=== PATIENT | female | born 1985 | race African-American/Black ===

== ENCOUNTER 2016-11-18 19:38 | Emergency (ER) | payer MEDICAID, OTHER ==
[~2016-11-18] VITALS: Ht 160 cm; Wt 66.0 kg
[~2016-11-18 19:38] MED LIST: TRAZ50TA4 PO
[2016-11-18 19:39] VITALS: BP 170/84; PULSE 85; RESP 16; TEMP 98.5; O2SAT 98
[2016-11-18] MEDS ORDERED: MEDR4PAK PO (21:30)
--- NOTE | 2016-11-18 21:39 | PD ---
HPI Chief Complaint: Abdominal Pain Time Seen by Provider: 21:39 Travel History International Travel<30 days: No Contact w/Intl Traveler<30days: No Traveled to known affect area: No History of Present Illness HPI 31-year-old female that presents to the ED for evaluation of possible bump to her vagina. Per patient she's had this since today. Per patient today she fell "weird down there". Per patient she was feeling the area to make sure she didn't have anything and she did notice that she had a lump on the vagina. Per patient she was concerned. Patient came here mainly because of this. She denies any other complaint. No chest pain or shortness of breath. No abdominal pain. No vaginal discharge. She denies any STD exposure stating that she had not had sex for over a year. Denies any back pain. No chest pain. No fevers chills or sweats. No urinary symptoms. No bowel movement issues. Per patient she doesn't have any pain but just palpated the area. No allergies to medications. 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) Psychiatric: No Reproductive: No Respiratory: No Migraines: Yes Ulcer: Yes ?: Not LMP: 11/09/16 : 4 Para: 4 Past Surgical History Surgical History: No Previous Surgery Other Surgery: No Social History Alcohol Use: Yes (rare) Tobacco Use: Yes (1/2 PPD) Substance Use: No Allergies-Medications (Allergen,Severity, Reaction): Coded Allergies: No Known Allergies (Verified , 11/18/16) Reported Meds & Prescriptions Reported Meds & Active Scripts Active Medrol Dosepak (Methylprednisolone) 4 Mg Dspk 4 Mg PO DIRECTED Per Pharmacist direction Review of Systems General / Constitutional: No: Fever, Chills, Weight Gain, Weight Loss, Other Eyes: No: Diploplia, Blurred Vision, Photophobia, Drainage, Redness, Foreign Body Sensation, Pain, Tearing, Blind Spots, Visual changes, Blindness, Other HENT: No: Headaches, Vertigo, Lightheadedness, Sore Throat, Rhinitis, Rhinorrhea, Congestion, Nosebleed, Neck Stiffness, Neck Pain, Masses, Gingival Bleeding, Dental Difficulties, Ear Discharge, Earache, Other Cardiovascular: No: Chest Pain or Discomfort, Palpitations, Irregular Rhythm, Tachycardia, Diaphoresis, Syncope, Dyspnea on exertion, Varicosities, Edema, Cyanosis, Varicosities, Phlebitis, Claudication, Other Respiratory: No: Cough, Shortness of Breath, Wheezing, Sneezing, Orthopnea, Hemoptysis, Stridor, Night Sweats, Pleuritic Pain, Other Gastrointestinal: No: Nausea, Vomiting, Diarrhea, Abdominal Pain, Hematemesis, Hematochezia, Constipation, Changes in Bowel Habits, Indigestion, Dysphagia, Loss of Appetite, Other Genitourinary: Positive: Other (vaginal lump), No: Urgency, Frequency, Dysuria , Nocturia, Hematuria, Decreased Urinary Output, Oliguria, Hesitancy, Dribbling , Incontinence, Pelvic Pain, Flank Pain, Dyspareunia, Discharge, Dysmenorrhea, Menorrhagia, Metorrhagia, Vaginal Bleeding Musculoskeletal: No: Myalgias, Arthralgias, Limited ROM, Weakness, Cramping, Edema, Pain, Atrophy, Other Skin: Positive Lumps, No Rash, No Itching, No Dryness, No Hives, No Change in Pigmentation, No Change in nails, No Alopecia, No Lesions, No Breast Lumps, No Breast Tenderness, No Breast Swelling, No Other Neurologic: No: Weakness, Dizziness, Syncope, Focal Abnormalities, Coordination Problem, Tremor, Ataxia, Headache, Change in Mentation, Slurred Speech, Paresthesia, Incontinence, Seizures, Sensory Disturbance, Other Psychiatric: No: Anxiety, Depression, Suicidal Ideations, Disorder of Thought, Mood Disorder, Substance Abuse, Homicidal Ideation, Other Endocrine: No: Heat Intolerance, Cold Intolerance, Polyuria, Polydipsia, Other Hematologic/Lymphatic: No: Easy Bruising, Lymph Node Enlargement, Other Physical Exam Narrative GENERAL: SKIN: Warm and dry. HEAD: Atraumatic. Normocephalic. EYES: Pupils equal and round. No scleral icterus. No injection or drainage. ENT: No nasal bleeding or discharge. Mucous membranes pink and moist. NECK: Trachea midline. No JVD. CARDIOVASCULAR: Regular rate and rhythm. RESPIRATORY: No accessory muscle use. Clear to auscultation. Breath sounds equal bilaterally. GASTROINTESTINAL: Abdomen soft, non-tender, nondistended. Hepatic and splenic margins not palpable. Vaginal exam: The one finger nurse present. Patient has no obvious deformity to the vagina itself. Patient does have some skin folds and possible small lumps to the upper aspect of the wall but there appeared to be nontender. No sign of obvious infection. Vaginal exam did reveal some whitish discharge with erythema on the cervix but no other deformity. No cervical tenderness. No lymphadenopathy noted. No cysts. MUSCULOSKELETAL: Extremities without clubbing, cyanosis, or edema. No obvious deformities. NEUROLOGICAL: Awake and alert. No obvious cranial nerve deficits. Motor grossly within normal limits. Five out of 5 muscle strength in the arms and legs. Normal speech. PSYCHIATRIC: Appropriate mood and affect; insight and judgment normal. Data Data Last Documented VS Vital Signs Date Time Temp Pulse Resp B/P Pulse Ox O2 Delivery O2 Flow Rate FiO2 11/18/16 19:39 98.5 85 16 170/84 98 Orders Gc And Chlamydia Pcr (11/18/16 21:33) Wet Prep Profile (11/18/16 21:33) Ua Includes Microscopic (11/18/16 21:33) Labs Laboratory Tests Test 11/18/16 21:40 Urine Color LIGHT-YELLOW Urine Turbidity CLEAR Urine pH 6.5 Urine Specific [place] 1.009 Urine Protein NEG mg/dL Urine Glucose (UA) NEG mg/dL Urine Ketones NEG mg/dL Urine Occult Blood NEG Urine Nitrite NEG Urine Bilirubin NEG Urine Urobilinogen LESS THAN 2.0 MG/DL Urine Leukocyte Esterase MOD Urine WBC 6 /hpf Urine Squamous Epithelial 3 /hpf Cells Microscopic Urinalysis Comment Clue Cells (Wet Prep) NONE SEEN Vaginal Trichomonas (Wet Prep) NONE SEEN Vaginal Yeast (Wet Prep) NONE SEEN MDM Medical Decision Making Medical Screen Exam Complete: Yes Emergency Medical Condition: Yes Medical Record Reviewed: Yes Interpretation(s) wet prep negative UA shows WBcs and leukerase esterase Differential Diagnosis Vaginal mass versus abscess versus vaginal discharge versus vaginitis Narrative Course 31-year-old female that presents to the ED for evaluation of possible vaginal lump. Patient was properly examined and was found to have signs and symptoms consistent with appears to be a vaginal lump. Patient also has some vaginal discharge. Questionable yeast infection versus fracture vaginosis. No sign of acute infection otherwise. Wet prep showed negative for acute disease. At this time I do not believe this is an STD. Patient does complains of a small lump. I believe that this is likely normal anatomy. Regardless I do recommend close follow-up with an HOG STOMACH PREPARER or her PCP for follow-up if this continues to be an issue. Patient did have some looker sisters as well as white blood cells on her urine. I will give patient a prescription for Keflex to cover for possible UTI. Follow with PCP. See ED worsening symptoms. Diagnosis Primary Impression: Lump in vagina Additional Impression: UTI (urinary tract infection) Qualified Code: N30.00 - Acute cystitis without hematuria Patient Instructions: General Instructions Additional Instructions: Take meds as prescribed. F/u with PCP or PREPARED FOODS ASSOCIATE See ED if worst. Med/Other Pt SpecificInfo: Prescription(s) given Scripts Cephalexin (Keflex)500 Mg [id number] Mg PO BID 10 Days Prov:Donte Ortiz MD 11/18/16 Methylprednisolone Dosepak (Medrol Dosepak)4 Mg Dspk4 Mg PO DIRECTED #1 DSPK Ref 0 Per Pharmacist direction Prov:Donte Ortiz MD 11/18/16 Disposition: 01 DISCHARGE HOME Condition: Stable Bob Waters Nov 18, 2016 21:39
[2016-11-18 22:33] LABS: BLOOD, URINE NEG (NEG); GLUCOSE,URINE NEG (NEG); KETONE, URINE NEG (NEG); NITRITE,URINE NEG (NEG); PH, URINE 6.5 (5.0-8.5); SQUAMOUS EPITHELIAL CELL URINE 3 /hpf (0-5); URINE COLOR LIGHT-YELLOW (YELLW/STRAW)
[2016-11-18] MEDS ORDERED: CEPH-460 PO (22:37)
[2016-11-19 01:14] LABS: CHLAMYDIA PCR NOT DETECTED (NOT DETECT); NEISSERIA PCR NOT DETECTED (NOT DETECT)
== END 2016-11-18 23:01 | disposition home or self-care (01) ==
LOC: NEPE 19:38
DX: N39.0 Urinary tract infection, site not specified (principal); R22.9 Localized swelling, mass and lump, unspecified; B96.89 Other specified bacterial agents as the cause of diseases classified elsewhere
CPT/HCPCS: 81001; 87210; 87491; 87591; 99283

== ENCOUNTER 2017-01-15 22:27 | Emergency (ER) | payer MEDICAID, OTHER ==
[~2017-01-15 22:27] MED LIST changes: +CEPH-460 PO; +MEDR4PAK PO; -TRAZ50TA4 PO
[2017-01-15 22:29] VITALS: BP 186/79; PULSE 81; RESP 16; TEMP 98.7; O2SAT 100
[2017-01-16 00:15] VITALS: BP 142/73; PULSE 78; RESP 16; TEMP 98.6
[2017-01-16] MEDS ORDERED: SODIUM CHLOR 0.9% 1000 ML INJ 1,000 ML IV ONE (00:56)
--- NOTE | 2017-01-16 01:10 | PD ---
HPI Chief Complaint: Bleeding Time Seen by Provider: 00:53 Travel History International Travel<30 days: No Contact w/Intl Traveler<30days: No Traveled to known affect area: No History of Present Illness HPI The patient is a 31 year old female who presents to the [facility] emergency department with a history of irregular vaginal bleeding that she reports began a month ago. She reports that it is associated with cramping. 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 The patient reports that she cannot stay any longer for evaluation. [facility] Past Medical History Narrative Medical The patient has a history of headaches, history of gallstones, history of dyspepsia. Cancer: No Cardiovascular Problems: No Diminished Hearing: No Endocrine: No Gastrointestinal Disorders: Yes (GALLSTONES; Chronic GI pain ??ulcer) Genitourinary: No Hypertension: Yes (R/T ) Immune Disorder: No Implanted Vascular Access Dvce: No Musculoskeletal: No Neurologic: Yes ("fluid on spine that causes headaches" per patient) Psychiatric: No Reproductive: No Respiratory: No Migraines: Yes Ulcer: Yes Tetanus Vaccination: < 5 Years Influenza Vaccination: No ?: Not LMP: 01/15/ Menopausal: Yes : 4 Para: 4 Past Surgical History Narrative Surgical The patient denies any past surgical history. Surgical History: No Previous Surgery Other Surgery: No Social History Alcohol Use: No Tobacco Use: Yes Substance Use: No Allergies-Medications (Allergen,Severity, Reaction): Coded Allergies: No Known Allergies (Verified , 01/15/17) Reported Meds & Prescriptions Reported Meds & Active Scripts Active Keflex (Cephalexin) 500 Mg Cap 500 Mg PO BID 10 Days Medrol Dosepak (Methylprednisolone) 4 Mg Dspk 4 Mg PO DIRECTED Per Pharmacist direction Review of Systems Except as stated in HPI: all other systems reviewed are Neg General / Constitutional: No: Fever Eyes: No: Visual changes HENT: No: Headaches Cardiovascular: No: Chest Pain or Discomfort Respiratory: No: Shortness of Breath Gastrointestinal: Positive: Abdominal Pain, No: Nausea, Vomiting, Diarrhea, Changes in Bowel Habits, Indigestion, Loss of Appetite Genitourinary: Positive: Pelvic Pain (cramping), Vaginal Bleeding, No: Dysuria , Discharge Musculoskeletal: No: Pain Skin: No Rash Neurologic: No: Weakness, Change in Mentation, Slurred Speech, Sensory Disturbance Psychiatric: No: Depression Endocrine: No: Polydipsia Hematologic/Lymphatic: No: Easy Bruising Physical Exam Exam Limitations: Left AMA Narrative Examination of this patient was not able to be completed and the patient elected to leave AGAINST MEDICAL ADVICE. Data Data Last Documented VS Vital Signs Date Time Temp Pulse Resp B/P Pulse Ox O2 Delivery O2 Flow Rate FiO2 01/16/17 00:15 98.6 78 16 142/73 Room Air 01/16/17 00:15 100 Orders Complete Blood Count With Diff (01/16/17 00:56) Comprehensive Metabolic Panel (01/16/17 00:56) Gc And Chlamydia Pcr (01/16/17 00:56) Wet Prep Profile (01/16/17 00:56) Urinalysis - C+S If Indicated (01/16/17 00:56) Iv Access Insert/Monitor (01/16/17 00:56) Sodium Chlor 0.9% 1000 Ml Inj (Ns 1000 M (01/16/17 00:56) Ed Urine Pregnancytest Poc (01/16/17 00:56) Thyroid Stimulating Hormone (01/16/17 00:56) MDM Medical Decision Making Medical Screen Exam Complete: Yes Emergency Medical Condition: Yes Medical Record Reviewed: Yes Differential Diagnosis Symptomatic anemia from dysfunctional uterine bleeding, versus endocrine disorder causing dysfunctional uterine bleeding, versus Narrative Course During the course of the patients emergency department visit, the patients history, examination, and differential diagnosis were reviewed with the patient. The patient had a bedside test that was reportedly negative. 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 The patient is aware that her workup is not completed. The patient reports that she will come back later. AMA: The risks of leaving against medical advice without further evaluation treatment were discussed with the patient. These risks include cardiac dysfunction, cardiac dysrhythmia, possible heart attack, possible stroke or . The patient indicated understanding of these risks and appeared to have the capacity to make this decision. Diagnosis Primary Impression: Vaginal bleeding Disposition: AGAINST MEDICAL ADVICE Condition: Stable Carmen Bai MD January 16, 2017 01:10
== END 2017-01-16 01:20 | disposition left against medical advice (07) ==
LOC: NEPE 22:27
DX: N93.9 Abnormal uterine and vaginal bleeding, unspecified (principal); I10 Essential (primary) hypertension; Z72.0 Tobacco use; Z87.19 Personal history of other diseases of the digestive system; Z86.69 Personal history of other diseases of the nervous system and sense organs; Z53.29 Procedure and treatment not carried out because of patient's decision for other reasons
CPT/HCPCS: 84703; 99283

== ENCOUNTER 2017-03-24 14:59 | Emergency (ER) | payer MEDICAID ==
[~2017-03-24] VITALS: Ht 157.5 cm; Wt 60.0 kg
[2017-03-24 15:01] VITALS: BP 161/101; PULSE 116; RESP 14; TEMP 99.4; O2SAT 98
[2017-03-24] MEDS ORDERED: SODIUM CHLOR 0.9% 1000 ML INJ 1,000 ML IV SCH (17:12)
--- NOTE | 2017-03-24 17:13 | PD ---
HPI Chief Complaint: Abdominal Pain Time Seen by Provider: 17:08 Travel History International Travel<30 days: No Contact w/Intl Traveler<30days: No Traveled to known affect area: No History of Present Illness HPI Patient is a 32-year-old female presents with epigastric abdominal pain radiating to her back and down her left lower extremity. Patient states he going on for the past 36-48 hours, she states initially had some mild nausea which is resolved with the pain then became into her back and down her left lower extremity. She describes the pain as electric shock sensation. She states when she lies on her right side feels much better. States this to the pain is never happened to her before. Denies any vaginal bleeding vaginal discharge vomiting diarrhea constipation. When asked if the pain is more in her belly and or her back states more in her belly. Patient states that she has a history of chronic headaches as been taking a fair amount of Excedrin but not in excess of label instructions. PFSH Past Medical History Cancer: No Cardiovascular Problems: No Diminished Hearing: No Endocrine: No Gastrointestinal Disorders: Yes (GALLSTONES; Chronic GI pain ??ulcer) Genitourinary: No Hypertension: Yes (R/T ) Immune Disorder: No Implanted Vascular Access Dvce: No Musculoskeletal: No Neurologic: Yes ("fluid on spine that causes headaches" per patient) Psychiatric: No Reproductive: No Respiratory: No Migraines: Yes Ulcer: Yes ?: Not LMP: 02/07/17 Menopausal: Yes : 4 Para: 4 Past Surgical History Other Surgery: No Social History Alcohol Use: No Tobacco Use: Yes Substance Use: No Allergies-Medications (Allergen,Severity, Reaction): Coded Allergies: No Known Allergies (Verified , 03/24/17) Reported Meds & Prescriptions Reported Meds & Active Scripts Active Ibuprofen 600 Mg Tab 600 Mg PO Q8H PRN Flexeril (Cyclobenzaprine HCl) 10 Mg Tab 10 Mg PO TID Prednisone 20 Mg Tab 60 Mg PO DAILY 5 Days Keflex (Cephalexin) 500 Mg Cap 500 Mg PO Q6H 3 Days Keflex (Cephalexin) 500 Mg Cap 500 Mg PO BID 10 Days Medrol Dosepak (Methylprednisolone) 4 Mg Dspk 4 Mg PO DIRECTED Per Pharmacist direction Review of Systems Except as stated in HPI: all other systems reviewed are Neg Physical Exam Narrative GENERAL: Well-developed well-nourished, appears in mild discomfort. SKIN: Focused skin assessment warm/dry. HEAD: Atraumatic. Normocephalic. EYES: Pupils equal and round. No scleral icterus. No injection or drainage. ENT: No nasal bleeding or discharge. Mucous membranes pink and moist. NECK: Trachea midline. No JVD. CARDIOVASCULAR: Regular rate and rhythm. No murmur appreciated. RESPIRATORY: No accessory muscle use. Clear to auscultation. Breath sounds equal bilaterally. GASTROINTESTINAL: Abdomen soft, non-tender, nondistended. Hepatic and splenic margins not palpable. No CVA tenderness. Her abdomen is quite benign. MUSCULOSKELETAL: No obvious deformities. No clubbing. No cyanosis. No edema. Patient does have some low lumbar tenderness to the left of midline. She states palpation at this point causes her painful sensation. NEUROLOGICAL: Awake and alert. No obvious cranial nerve deficits. Motor grossly within normal limits. Normal speech. 5 out of 5 strength in bilateral lower extremity's, DTRs 2+ bilaterally equal. PSYCHIATRIC: Appropriate mood and affect; insight and judgment normal. Data Data Last Documented VS Vital Signs Date Time Temp Pulse Resp B/P Pulse Ox O2 Delivery O2 Flow Rate FiO2 03/24/17 17:32 18 100 Room Air 03/24/17 15:01 99.4 116 161/101 Orders Complete Blood Count With Diff (03/24/17 17:12) Comprehensive Metabolic Panel (03/24/17 17:12) Lipase (03/24/17 17:12) Urinalysis - C+S If Indicated (03/24/17 17:12) Iv Access Insert/Monitor (03/24/17 17:12) Ecg Monitoring (03/24/17 17:12) Oximetry (03/24/17 17:12) Pantoprazole Inj (Protonix Inj) (03/24/17 17:15) Sodium Chlor 0.9% 1000 Ml Inj (Ns 1000 M (03/24/17 17:12) Sodium Chloride 0.9% Flush (Ns Flush) (03/24/17 17:15) Ketorolac Inj (Toradol Inj) (03/24/17 17:15) Ed Urine Pregnancytest Poc (03/24/17 17:12) Urine Culture (03/24/17 17:25) Labs Laboratory Tests Test 03/24/17 17:25 White Blood Count 8.1 TH/MM3 Red Blood Count 4.72 MIL/MM3 Hemoglobin 14.7 GM/DL Hematocrit 42.6 % Mean Corpuscular Volume 90.4 FL Mean Corpuscular Hemoglobin 31.1 PG Mean Corpuscular Hemoglobin 34.5 % Concent Red Cell Distribution Width 13.3 % Platelet Count 237 TH/MM3 Mean Platelet Volume 10.7 FL Neutrophils (%) (Auto) 50.0 % Lymphocytes (%) (Auto) 40.0 % Monocytes (%) (Auto) 8.4 % Eosinophils (%) (Auto) 0.8 % Basophils (%) (Auto) 0.8 % Neutrophils # (Auto) 4.1 TH/MM3 Lymphocytes # (Auto) 3.3 TH/MM3 Monocytes # (Auto) 0.7 TH/MM3 Eosinophils # (Auto) 0.1 TH/MM3 Basophils # (Auto) 0.1 TH/MM3 CBC Comment DIFF FINAL Differential Comment Urine Color YELLOW Urine Turbidity CLEAR Urine pH 6.5 Urine Specific [place] 1.015 Urine Protein NEG mg/dL Urine Glucose (UA) NEG mg/dL Urine Ketones NEG mg/dL Urine Occult Blood NEG Urine Nitrite NEG Urine Bilirubin NEG Urine Urobilinogen LESS THAN 2.0 MG/DL Urine Leukocyte Esterase MOD Urine WBC 9 /hpf Urine Squamous Epithelial <1 /hpf Cells Microscopic Urinalysis Comment CULTURE INDICATED Sodium Level 136 MEQ/L Potassium Level 3.8 MEQ/L Chloride Level 105 MEQ/L Carbon Dioxide Level 25.6 MEQ/L Anion Gap 5 MEQ/L Blood Urea Nitrogen 12 MG/DL Creatinine 0.58 MG/DL Estimat Glomerular Filtration 148 ML/MIN Rate Random Glucose 75 MG/DL Calcium Level 9.5 MG/DL Total Bilirubin 0.5 MG/DL Aspartate Amino Transf 25 U/L (AST/SGOT) Alanine Aminotransferase 19 U/L (ALT/SGPT) Alkaline Phosphatase 75 U/L Total Protein 7.5 GM/DL Albumin 4.0 GM/DL Lipase 165 U/L [facility] Medical Decision Making Medical Screen Exam Complete: Yes Emergency Medical Condition: Yes Differential Diagnosis Sciatic, UTI, acute abdomen unlikely, pancreatitis unlikely, cholecystitis unlikely, gastritis Narrative Course Patient roomed emergency department, her symptoms are much more in line with sciatica. Is possible that she is having some gastritis symptoms given the history of Excedrin intake. She states that she has not been taking any pill in excess of label instructions are for toxicity is highly unlikely. Her basic labs are reassuring. test negative, UA does show evidence of urinary tract infection. She is counseled on likely diagnosis of sciatica and she does state that she works in the [employer] and does a lot of heavy lifting. Discussed with her symptomatic management need follow-up with primary care provider in 16 weeks if no better for consideration of an MRI. She verbalized understanding and agreement. There is no indication further workup at this time is patient is neurologically intact. Her abdomen is benign. She stable for discharge. Diagnosis Primary Impression: Sciatica Qualified Code: M54.32 - Sciatica of left side Additional Impression: UTI (urinary tract infection) Qualified Code: N30.00 - Acute cystitis without hematuria Patient Instructions: General Instructions, RICE Therapy (GEN) Additional Instructions: Call your insurance company to establish with a primary care provider. Scripts Ibuprofen 600 Mg [id number] Mg PO Q8H PRN (PAIN) #20 TAB Ref 0 Prov:Jose Allison MD 03/24/17 Cyclobenzaprine (Flexeril)10 Mg Tab10 Mg PO TID #20 TAB Ref 0 Prov:Jose Allison MD 03/24/17 Prednisone 20 Mg Tab60 Mg PO DAILY 5 Days Ref 0 Prov:Jose Allison MD 03/24/17 Cephalexin (Keflex)500 Mg [id number] Mg PO Q6H 3 Days Ref 0 Prov:Jose Allison MD 03/24/17 Disposition: 01 DISCHARGE HOME Condition: Stable Jose Allison MD Mar 24, 2017 17:13
[2017-03-24] MEDS ORDERED: PANTOPRAZOLE SODIUM 40 MG VIAL IVP ONE (17:15)
[2017-03-24] MEDS ORDERED: KETOROLAC TROMETHAMINE 30 MG/ML (IVP) VIAL IVP ONE (17:15)
[2017-03-24] MEDS ORDERED: SODIUM CHLORIDE 0.9% FLUSH 10 ML FLUSH IV FLUSH PRN (17:15)
[2017-03-24 17:32] VITALS: RESP 18; O2SAT 100
[2017-03-24 18:17] LABS: AUTOMATED NEUTROPHIL # 4.1 TH/MM3 (1.8-7.7); BASOPHIL # 0.1 TH/MM3 (0-0.2); BASOPHIL % 0.8 % (0.0-2.0); EOSINOPHIL # 0.1 TH/MM3 (0-0.4); EOSINOPHIL % 0.8 % (0.0-4.0); HEMATOCRIT 42.6 % (35.0-46.0); HEMO FLAGS DIFF FINAL; LYMPHOCYTE # 3.3 TH/MM3 (1.0-4.8); MEAN CELL VOLUME 90.4 FL (80.0-100.0); MEAN CORPUSCULAR HEMOGLOBIN 31.1 PG (27.0-34.0); MEAN CORPUSCULAR HGB CONC 34.5 % (32.0-36.0); MONO % 8.4 % (0.0-8.0); PLATELET COUNT 237 TH/MM3 (150-450); RED BLOOD COUNT 4.72 MIL/MM3 (4.00-5.30); RED CELL DISTRIBUTION WIDTH 13.3 % (11.6-17.2); WHITE BLOOD COUNT 8.1 TH/MM3 (4.0-11.0)
[2017-03-24 18:21] LABS: BLOOD, URINE NEG (NEG); COMMENT (UR) CULTURE INDICATED; CULTURE IF INDICATED CULTURE INDICATED; GLUCOSE,URINE NEG (NEG); KETONE, URINE NEG (NEG); NITRITE,URINE NEG (NEG); PH, URINE 6.5 (5.0-8.5); SQUAMOUS EPITHELIAL CELL URINE <1 /hpf (0-5); URINE COLOR YELLOW (YELLW/STRAW)
[2017-03-24 18:31] LABS: ALT (GPT) 19 U/L (10-53)
[2017-03-24 18:33] LABS: ALKALINE PHOSPHATASE 75 U/L (45-117); TOTAL BILIRUBIN ADULT 0.5 MG/DL (0.2-1.0)
[2017-03-24 18:35] LABS: ANION GAP 5 MEQ/L (5-15); AST (GOT) 25 U/L (15-37); BICARBONATE 25.6 MEQ/L (21.0-32.0); BLOOD UREA NITROGEN 12 MG/DL (7-18); CHLORIDE 105 MEQ/L (98-107); GLOMERULAR FILTRATION RATE 148 ML/MIN (>89); POTASSIUM 3.8 MEQ/L (3.5-5.1); SODIUM (NA) 136 MEQ/L (136-145)
[2017-03-24] MEDS ORDERED: PRED20 PO (19:04)
[2017-03-24] MEDS ORDERED: IBUP-232 PO (19:04)
[2017-03-24] MEDS ORDERED: CEPH-460 PO (19:04)
[2017-03-24] MEDS ORDERED: CYCL1TAB29 PO (19:04)
== END 2017-03-24 19:20 | disposition home or self-care (01) ==
LOC: NEPD 14:59
DX: M54.32 Sciatica, left side (principal); N30.00 Acute cystitis without hematuria; B96.89 Other specified bacterial agents as the cause of diseases classified elsewhere; R11.0 Nausea; R51 Headache; I10 Essential (primary) hypertension; Z72.0 Tobacco use; Z87.19 Personal history of other diseases of the digestive system; Z86.69 Personal history of other diseases of the nervous system and sense organs
CPT/HCPCS: 80053; 81001; 83690; 84703; 85025; 87086; 96361; 96374; 96375; 99284; C9113; J1885; J7030

== ENCOUNTER 2017-09-07 07:43 | Emergency (ER) | payer MEDICAID ==
[~2017-09-07] VITALS: Ht 157.5 cm; Wt 60.0 kg
[~2017-09-07 07:43] MED LIST changes: +CYCL10TA PO; +IBUP-232 PO; +PRED20 PO
[2017-09-07 07:44] VITALS: BP 139/72; PULSE 101; RESP 18; TEMP 99.1; O2SAT 98
[2017-09-07] MEDS ORDERED: IBUP1TAB7 PO (08:19)
[2017-09-07] MEDS ORDERED: PENI500T PO (08:19)
[2017-09-07] MEDS ORDERED: MAGICADU2 SWISH-SPIT (08:19)
--- NOTE | 2017-09-07 08:21 | PD ---
HPI Chief Complaint: Oral / Dental Pain or Problem Time Seen by Provider: 08:12 Travel History International Travel<30 days: No Contact w/Intl Traveler<30days: No Traveled to known affect area: No History of Present Illness HPI This is a 32-year-old female who presents for evaluation of dental pain. Symptoms started 2 days ago. Pain is a throbbing pain, constant worse when chewing. She has been using Orajel but symptoms persisted which prompted evaluation. Denies fevers, chills. No other complaints. PFSH Past Medical History Cancer: No Cardiovascular Problems: No Diminished Hearing: No Endocrine: No Gastrointestinal Disorders: Yes (GALLSTONES; Chronic GI pain ??ulcer) Genitourinary: No Hypertension: Yes (R/T ) Immune Disorder: No Implanted Vascular Access Dvce: No Musculoskeletal: No Neurologic: Yes ("fluid on spine that causes headaches" per patient) Psychiatric: No Reproductive: No Respiratory: No Migraines: Yes Ulcer: Yes Menopausal: Yes : 4 Para: 4 Past Surgical History Other Surgery: No Social History Alcohol Use: No Tobacco Use: No Substance Use: No Allergies-Medications (Allergen,Severity, Reaction): Coded Allergies: No Known Allergies (Verified Adverse Reaction, Unknown, 09/07/17) Reported Meds & Prescriptions Reported Meds & Active Scripts Active Ibuprofen 800 Mg Tab 800 Mg PO Q6HR PRN Magic Mouthwash Adult Liq (Multi-Ingredient Mouthwash/Gargle) 120 Ml Susp 10 Ml SWISH-SPIT ACHS Each 5mL contains: Nystatin 200,000units, Diphenhydramine 4.25mg, Viscous Lidocaine 10mg, Guajardo syrup 0.8 mL Penicillin V Potassium 500 Mg Tab 500 Mg PO Q8H 7 Days Review of Systems General / Constitutional: No: Fever, Chills HENT: Positive: Dental Difficulties, No: Neck Pain Cardiovascular: No: Chest Pain or Discomfort Physical Exam Narrative GENERAL: Well-nourished female in no acute distress SKIN: Warm and dry. HEAD: Atraumatic. Normocephalic. EYES: Pupils equal and round. No scleral icterus. No injection or drainage. ENT: No nasal bleeding or discharge. Mucous membranes pink and moist. The right mandibular premolars are decayed and tender to palpation. There is no sublingual edema, no trismus, no facial edema NECK: Trachea midline. No JVD. No lymphadenopathy or submandibular edema CARDIOVASCULAR: Regular rate and rhythm. No murmur appreciated. RESPIRATORY: No accessory muscle use. Clear to auscultation. Breath sounds equal bilaterally. Data Data Last Documented VS Vital Signs Date Time Temp Pulse Resp B/P (MAP) Pulse Ox O2 Delivery O2 Flow Rate FiO2 09/07/17 07:44 99.1 101 18 139/72 (94) 98 Room Air MDM Medical Decision Making Medical Screen Exam Complete: Yes Emergency Medical Condition: Yes Medical Record Reviewed: Yes Differential Diagnosis Dental caries, pulpitis, pericoronitis, periodontal abscess Narrative Course Examination is consistent with dental caries. The patient is being discharged with short course of penicillin, nonnarcotic analgesics. Diagnosis Primary Impression: Dental caries Additional Instructions: Medication as prescribed. Follow-up with a dentist for definitive therapy. Return for any emergent medical conditions. Med/Other Pt SpecificInfo: Prescription(s) given Scripts Ibuprofen (Ibuprofen) 800 Mg Tab 800 MG PO Q6HR Y for PAIN, #40 TAB 0 Refills Prov: Alie Dominguez MD 09/07/17 Uvjoodgr-Oiosqlsjdnumozh-Hcfywalfs Liq (Magic Mouthwash Adult Liq) 120 Ml Susp 10 ML SWISH-SPIT ACHS for Mouth sores, #120 ML 1 Refill Each 5mL contains: Nystatin 200,000units, Diphenhydramine 4.25mg, Viscous Lidocaine 10mg, Guajardo syrup 0.8 mL Prov: Alie Dominguez MD 09/07/17 Penicillin V Potassium (Penicillin V Potassium) 500 Mg Tab 500 MG PO Q8H for Infection for 7 Days, #21 TAB 0 Refills Prov: Alie Dominguez MD 09/07/17 Disposition: 01 DISCHARGE HOME Condition: Stable Ji Diallo Sep 07, 2017 08:21
== END 2017-09-07 08:57 | disposition home or self-care (01) ==
LOC: NEPK 07:43
DX: K02.9 Dental caries, unspecified (principal); I10 Essential (primary) hypertension
CPT/HCPCS: 99283